=== PATIENT | male | born 1970 | race African-American/Black ===

== ENCOUNTER 2021-03-31 18:47 | Emergency (ER) | payer OTHER ==
[~2021-03-31] VITALS: Ht 167.6 cm; Wt 86.6 kg
[2021-03-31 18:50] VITALS: BP 188/102
[2021-03-31] MEDS ORDERED: CYCLOBENZAPRINE5 MG PO (20:36)
== END 2021-03-31 21:53 | disposition home or self-care (01) ==
LOC: ER 18:47
DX: S39.012A Strain of muscle, fascia and tendon of lower back, initial encounter (principal); I10 Essential (primary) hypertension; E11.9 Type 2 diabetes mellitus without complications; X50.0XXA Overexertion from strenuous movement or load, initial encounter; Y93.89 Activity, other specified; Y92.89 Other specified places as the place of occurrence of the external cause; Y99.8 Other external cause status